=== PATIENT | male | born 1980 | race African-American/Black ===

== ENCOUNTER 2024-03-30 11:21 | Emergency (ER) | payer MEDICAID ==
[~2024-03-30] VITALS: Ht 182.9 cm; Wt 81.8 kg
[~2024-03-30 11:21] MED LIST: FLUO-342 PO; OLAN10TA74 PO
[2024-03-30 11:34] VITALS: TEMP 98.8
[2024-03-30 12:03] LABS: BASOPHILS % (AUTO) 0.8 % (0.0-2.0); EOSINOPHILS % (AUTO) 1.9 % (1.0-6.0); HEMATOCRIT 42.8 % (41-53); HEMOGLOBIN 14.1 g/dL (13.5-17.5); LYMPHOCYTES # (AUTO) 2.2 K/uL (1.0-4.8); LYMPHOCYTES % (AUTO) 34.8 % (22.0-44.0); MEAN CORPUSCULAR HEMOGLOBIN 30.1 pg (26.0-34.0); MEAN CORPUSCULAR VOLUME 91 fL (80-100); MONOCYTES # (AUTO) 0.7 K/uL (0.1-1.0); MONOCYTES % (AUTO) 11.6 % (2.0-9.0); NEUTROPHILS # (AUTO) 3.2 K/uL (1.8-7.7); NEUTROPHILS % (AUTO) 50.9 % (40.0-70.0); PLATELET COUNT (AUTO) 337 K/uL (150-450); RED BLOOD CELL COUNT(AUTO) 4.69 MIL/uL (4.50-5.90); WHITE BLOOD COUNT (AUTO) 6.3 K/uL (4.5-11.0)
[2024-03-30 12:19] LABS: ANION GAP 10 mmol/L (8-16); CALCIUM, TOTAL 9.2 mg/dL (8.8-10.5); CARBON DIOXIDE 25 mmol/L (22-29); CHLORIDE 104 mmol/L (98-107); CREATININE 1.24 mg/dL (0.60-1.30); GLOMERULAR FILTR. RATE CALC > 60 mL/min (>60); GLUCOSE,RANDOM 93 mg/dL (70-110); POTASSIUM 3.7 mmol/L (3.5-5.1); SODIUM SERUM 139 mmol/L (136-145); UREA NITROGEN, BLOOD 22 mg/dL (7-18)
[2024-03-30 12:31] LABS: TROPONIN I-HIGH SENSITIVITY 11 ng/L (<76)
[2024-03-30 13:30] VITALS: BP 123/78; PULSE 68; RESP 20; O2SAT 99
[2024-03-30] MEDS: ACETAMINOPHEN 500 MG TABLET PO ONE (13:32)
[2024-03-30] MEDS: LORazepam 1 MG TABLET PO ONE (13:32)
[2024-03-30 14:58] LABS: TROPONIN I-HIGH SENSITIVITY 10 ng/L (<76)
== END 2024-03-30 15:32 | disposition home or self-care (01) ==
LOC: EMS 11:21
DX: R07.89 Other chest pain (principal); F20.9 Schizophrenia, unspecified; F15.90 Other stimulant use, unspecified, uncomplicated; Z88.8 Allergy status to other drugs, medicaments and biological substances
CPT/HCPCS: 71045; 80048; 84484; 85025; 93005; 99285; 36415-L1; 36415-TC